=== PATIENT | female | born 1935 | race Caucasian/White ===

== ENCOUNTER 2019-03-07 15:20 | Emergency (ER) | payer MEDICARE, MEDICAID ==
[~2019-03-07] VITALS: Ht 149.9 cm; Wt 69.9 kg
[2019-03-07] MEDS ORDERED: NACL 0.9% 1,000 ML IV ONE (15:25)
[2019-03-07 15:27] VITALS: BP_SYST 179
[2019-03-07] MEDS ORDERED: NS 1000 ML IV.SOLN IV ONE (15:30)
[2019-03-07 16:22] LABS: BASOPHILS # (AUTO) 0.1 K/uL (0.0-0.2); BASOPHILS % (AUTO) 1.1 % (0.0-2.0); EOSINOPHILS # (AUTO) 0.1 K/uL (0.0-0.4); EOSINOPHILS % (AUTO) 2.2 % (0.0-4.0); HEMATOCRIT 40.6 % (36-48); HEMOGLOBIN 13.5 g/dL (12.0-16.0); LYMPHOCYTES # (AUTO) 1.4 K/uL (1.0-5.5); MEAN CORPUSCULAR HEMOGLOBIN 29 pg (27-31); MEAN CORPUSCULAR HGB CONC 33 % (32-36); MEAN CORPUSCULAR VOLUME 87 fL (79.0-98.0); MONOCYTES # (AUTO) 0.5 K/uL (0.0-1.0); MONOCYTES % (AUTO) 10.6 % (1.7-9.3); NEUTROPHILS # (AUTO) 2.9 K/uL (1.8-7.7); NEUTROPHILS % (AUTO) 58.1 % (40.0-70.0); PLATELET COUNT (AUTO) 140 K/uL (130-430); RED BLOOD CELL COUNT(AUTO) 4.64 MIL/uL (4.2-6.2); RED CELL DISTRIBUTION WIDTH 13.1 % (9.0-15.0)
[2019-03-07 16:38] LABS: ANION GAP 5 (5-15); CHLORIDE 101 mmol/L (98-107); CREATININE 0.98 mg/dL (0.55-1.30); GLUCOSE 336 mg/dL (70-99); POTASSIUM 4.4 mmol/L (3.5-5.1); SODIUM SERUM 137 mmol/L (136-145); UREA NITROGEN, BLOOD 14 mg/dL (8-21)
[2019-03-07 16:41] LABS: PROTHROMBIN TIME 10.2 SECS (9.5-12.5)
[2019-03-07 16:44] LABS: ALANINE AMINOTRANSFERASE 30 U/L (12-78); ALBUMIN 4.2 g/dL (3.4-4.8); AMYLASE 39 U/L (0-100); ASPARTATE AMINOTRANSFERASE 21 U/L (10-37); LIPASE 105 U/L (73-393); TOTAL BILIRUBIN 1.2 mg/dL (0.0-1.0)
[2019-03-07 16:59] LABS: ALCOHOL, BLOOD < 3 mg/dL (<10)
[2019-03-07 17:04] LABS: ACETAMINOPHEN < 1 ug/mL (1-30); CALCIUM 8.9 mg/dL (8.4-11.0)
[2019-03-07] MEDS ORDERED: NACL 0.9% 2,000 ML IV ONE (17:15)
[2019-03-07] MEDS ORDERED: INSULIN REGULAR, HUMAN 10 UNITS/0.1 ML INJ IVP ONE (17:15)
[2019-03-07 17:19] VITALS: BP_SYST 148
[2019-03-07 17:28] LABS: CKMB RELATIVE INDEX 1.3 (0.0-2.9); CREATINE KINASE MB 3.3 ng/mL (0-3.6)
== END 2019-03-07 17:24 | disposition home or self-care (01) ==
LOC: SED 15:20
DX: M48.56XA Collapsed vertebra, not elsewhere classified, lumbar region, initial encounter for fracture (principal); M47.816 Spondylosis without myelopathy or radiculopathy, lumbar region; M41.56 Other secondary scoliosis, lumbar region; R42 Dizziness and giddiness; E11.65 Type 2 diabetes mellitus with hyperglycemia; I10 Essential (primary) hypertension
CPT/HCPCS: 36415; 70450; 71045; 72110; 80053; 82150; 82550; 82553; 82962; 83605; 83690; 83880; 84484; 85025; 85379; 85610; 85730; 87040; 93005; 96360; 99284; G0480; G0482; J7030

== ENCOUNTER 2019-03-26 16:38 | Inpatient (IN) | payer MEDICAID, MEDICARE ==
[~2019-03-26] VITALS: Ht 152.4 cm; Wt 69.9 kg
[2019-03-26 16:38] VITALS: BP_SYST 183
[~2019-03-26 16:38] MED LIST: BUPIVACAINE /DEX PF 0.75% SPINAL 2 ML AMP INJ ONE; CEFAZOLIN 2 GM IVPB PREMIX 50 ML IV ONE; LR 1,000 ML IV.SOLN IV ONE; MIDAZOLAM HCL 5 MG/5 ML VIAL IVP ONE; MORPHINE SULFATE 10MG/10ML PF AMP EP ONE; PROPOFOL 200MG/ 20ML VIAL (DIPRIVAN) IV ONE
--- NOTE | 2019-03-26 16:38 | NUR ---
BROUGHT BACK TO HALLWAY BED AND TRIAGED. REPORT GIVEN TO KELSI
--- NOTE | 2019-03-26 17:00 | NUR ---
Patient to ER bed 6 to gown for evaluation. Side rails up.
--- NOTE | 2019-03-26 17:05 | NUR ---
Patient presented to ER C/O mechanical fall. Patient BIB BLS to ER, afebrile, skin pink and warm, pedal pulses present, denies N/V/D, pain 10/10. Patient states she tripped over rug at home, daughter of patient found pt on floor.
--- NOTE | 2019-03-26 17:32 | NUR ---
PT TO ER BED [address]
--- NOTE | 2019-03-26 17:35 | NUR ---
ER Dr. VIZCARRA at bedside examining patient.
--- NOTE | 2019-03-26 17:40 | NUR ---
PT FAMILY WILL BRING IN HOME MEDS LIST.
[2019-03-26 18:16] LABS: BASOPHILS # (AUTO) 0.1 K/uL (0.0-0.2); BASOPHILS % (AUTO) 0.8 % (0.0-2.0); EOSINOPHILS # (AUTO) 0.1 K/uL (0.0-0.4); HEMATOCRIT 38.5 % (36-48); LYMPHOCYTES # (AUTO) 1.1 K/uL (1.0-5.5); MEAN CORPUSCULAR HEMOGLOBIN 29 pg (27-31); MEAN CORPUSCULAR HGB CONC 34 % (32-36); MEAN CORPUSCULAR VOLUME 87 fL (79.0-98.0); MONOCYTES # (AUTO) 0.7 K/uL (0.0-1.0); MONOCYTES % (AUTO) 8.5 % (1.7-9.3); NEUTROPHILS # (AUTO) 6.1 K/uL (1.8-7.7); NEUTROPHILS % (AUTO) 75.7 % (40.0-70.0); PLATELET COUNT (AUTO) 133 K/uL (130-430); RED CELL DISTRIBUTION WIDTH 13.1 % (9.0-15.0); WHITE BLOOD COUNT (AUTO) 8.1 K/uL (4.8-10.8)
[2019-03-26 18:31] LABS: ANION GAP 8 (5-15); CALCIUM 9.1 mg/dL (8.4-11.0); CHLORIDE 101 mmol/L (98-107); CREATININE 0.72 mg/dL (0.55-1.30); GLUCOSE 276 mg/dL (70-99); POTASSIUM 4.3 mmol/L (3.5-5.1); SODIUM SERUM 139 mmol/L (136-145); UREA NITROGEN, BLOOD 17 mg/dL (8-21)
[2019-03-26 18:34] LABS: PROTHROMBIN TIME 9.9 SECS (9.5-12.5)
[2019-03-26 18:37] LABS: ALANINE AMINOTRANSFERASE 27 U/L (12-78); ASPARTATE AMINOTRANSFERASE 18 U/L (10-37); TOTAL BILIRUBIN 0.9 mg/dL (0.0-1.0)
[2019-03-26] MEDS ORDERED: KETOROLAC TROMETHAMINE 30 MG VIAL IVP ONE (18:45)
--- NOTE | 2019-03-26 19:03 | NUR ---
Patient will be admitted to care of [facility]. Admitted to TELE unit. Will go to room 122A. Belongings list completed. Complete and up to date summary report printed. SBAR report to be given at bedside with opportunity for questions. Transfer to TELE via ACLS protocol. Licensed nurse present. IV present no signs or symptoms of infiltration.
--- NOTE | 2019-03-26 19:10 | NUR ---
ADMISSION NOTE Received patient from ER via gurcelso, received report from RN. Patient admitted with diagnosis of right hip and right humerus fracture. Patient oriented to hospital routine, call light, toileting and safety-patient verbalized understanding.
--- NOTE | 2019-03-26 19:30 | NUR ---
Opening notes Patient resting in bed. Patient complaints of pain, but not too bad. States she does not want any narcotics. IV patent and intact, no signs of infiltration noted. Oriented patient to room and call light. Call light with the patient. Safety precautions in place.
[2019-03-26] MEDS ORDERED: VALS160T29 PO (19:49)
[2019-03-26] MEDS ORDERED: LIP40 PO (19:49)
[2019-03-26] MEDS ORDERED: GLIM4TAB PO (19:49)
[2019-03-26] MEDS ORDERED: MORPHINE 2 MG/ML INJ. SYRINGE IVP PRN (20:00)
[2019-03-26 20:17] VITALS: BP_SYST 160
[2019-03-26] MEDS: ACETAMINOPHEN 325 MG TABLET PO PRN (20:55)
--- NOTE | 2019-03-26 21:00 | NUR ---
Loo insertion Patient repositioned and wanting to use bed pain. Patient experienced severe pain. Informed patient and family that patient may need to have a loo catheter inserted. Patient and family agree. Spoke to Dr. Qureshi about current situation and ordered for loo catheter to be inserted and strict I&Os. Loo catheter inserted with 500 ml of clear yellow urine return. Urine collected for UA. No other needs at this time. Call light with the patient. Safety precautions in place.
--- NOTE | 2019-03-26 21:16 | NUR ---
CONSULTATION PAGED/CALLED Reason for Consultation: [facility] CARDIOLOGY CLEARANCE Person Who was Notified: ELSA Consulting Physician: Maintenance Superintendent Specialty: CARDIO Ordering Physician:
[2019-03-26] MEDS: INSULIN LISPRO SLIDING SCALE 100 UNITS/ML VIAL (humaLOG) SUBCUT PRN (22:14)
[2019-03-26 22:21] LABS: BILIRUBIN,URINE NEGATIVE (NEGATIVE); BLOOD, URINE NEGATIVE (NEGATIVE); CLARITY/URINE CLEAR (CLEAR); COLOR,URINE YELLOW (YELLOW); GLUCOSE,URINE 3+ (NEGATIVE); KETONES,URINE NEGATIVE (NEGATIVE); LEUKOCYTE ESTERASE ,URINE NEGATIVE (NEGATIVE); NITRITE, URINE NEGATIVE (NEGATIVE); PROTEIN URINE NEGATIVE (NEGATIVE); UROBILINOGEN,URINE 0.2 (0.2-1.0)
[2019-03-26] MEDS: ZOLPIDEM TARTRATE 5 MG TABLET PO PRN (23:45)
--- NOTE | 2019-03-26 23:45 | NUR ---
Ambien Patient requesting sleeping pill. PRN ambien given. Educated the action and side effects of medications. Patient and family verbalized understanding. No other needs. Call light with the patient. Safety precautions in place. Family at bedside.
[2019-03-27 00:30] VITALS: BP_SYST 118
--- NOTE | 2019-03-27 02:30 | NUR ---
Sleeping No signs of distress noted. Breathing even and unlabored. No needs. Call light with the patient. Safety precautions in place. Family at bedside.
--- NOTE | 2019-03-27 04:30 | NUR ---
Sleeping No signs of distress noted. Breathing even and unlabored. No signs of pain noted. Call light with the patient. Safety precautions in place.
[2019-03-27] MEDS: INSULIN LISPRO SLIDING SCALE 100 UNITS/ML VIAL (humaLOG) SUBCUT PRN ×4 (06:18→20:14)
[2019-03-27] MEDS: ACETAMINOPHEN 325 MG TABLET PO PRN ×3 (06:19→19:21)
[2019-03-27 06:25] LABS: ALANINE AMINOTRANSFERASE 24 U/L (12-78); ALBUMIN 3.5 g/dL (3.4-4.8); ANION GAP 8 (5-15); ASPARTATE AMINOTRANSFERASE 16 U/L (10-37); CALCIUM 8.3 mg/dL (8.4-11.0); CHLORIDE 101 mmol/L (98-107); CREATININE 0.72 mg/dL (0.55-1.30); GLUCOSE 319 mg/dL (70-99); POTASSIUM 4.2 mmol/L (3.5-5.1); SODIUM SERUM 136 mmol/L (136-145); THYROID STIMULATING HORMONE 0.48 uIu/mL (0.36-3.74); TOTAL BILIRUBIN 1.1 mg/dL (0.0-1.0); UREA NITROGEN, BLOOD 20 mg/dL (8-21)
[2019-03-27 06:40] LABS: BASOPHILS % (AUTO) 0.4 % (0.0-2.0); EOSINOPHILS % (AUTO) 0.3 % (0.0-4.0); HEMATOCRIT 34.6 % (36-48); HEMOGLOBIN 11.7 g/dL (12.0-16.0); LYMPHOCYTES # (AUTO) 0.9 K/uL (1.0-5.5); LYMPHOCYTES % (AUTO) 9.9 % (20.5-51.5); MEAN CORPUSCULAR HEMOGLOBIN 30 pg (27-31); MEAN CORPUSCULAR HGB CONC 34 % (32-36); MEAN CORPUSCULAR VOLUME 88 fL (79.0-98.0); MONOCYTES # (AUTO) 0.9 K/uL (0.0-1.0); NEUTROPHILS # (AUTO) 7.7 K/uL (1.8-7.7); NEUTROPHILS % (AUTO) 80.4 % (40.0-70.0); PLATELET COUNT (AUTO) 138 K/uL (130-430); RED BLOOD CELL COUNT(AUTO) 3.95 MIL/uL (4.2-6.2); RED CELL DISTRIBUTION WIDTH 13.3 % (9.0-15.0); WHITE BLOOD COUNT (AUTO) 9.6 K/uL (4.8-10.8)
--- NOTE | 2019-03-27 06:41 | NUR ---
Closing notes Patient resting in bed. No signs of distress noted. Breathing even and unlabored. PRN Tylenol given. Accucheck 299, insulin given per sliding scale. Patient tolerated well. IV patent and intact, no signs of infiltration noted. Valentin catheter in place draining yellow urine. all needs met throughout the shift. Call light with the patient. Safety precautions in place. Will endorse care to day shift RN.
--- NOTE | 2019-03-27 07:50 | NUR ---
OPENING NOTE RECEIVED PATIENT FROM BREAKFAST HOSTESS. PATIENT AWAKE IN BED. NO C/O PAIN. ROOM AIR. NO ACUTE DISTRESS. NO SOB. RESPIRATION EVEN AND UNLABORED. SKIN WARM AND DRY TO TOUCH. IV INTACT AND PATENT. PATIENT ABLE TO WIGGLE TOES TO BLE. DAUGHTER AND GRANDSON AT BEDSIDE. DISCUSSED PLAN OF CARE; PT AND FAMILY VERBALIZED UNDERSTANDING. ALL NEEDS MET. BED IN LOW AND LOCKED POSITION. SIDERAIL UPX3. CALL LIGHT IN REACH. CONT TO MONITOR
[2019-03-27 08:11] VITALS: BP_SYST 118
[2019-03-27] MEDS: LOSARTAN POTASSIUM 50 MG TABLET (COZAAR) PO SCH (08:38)
[2019-03-27] MEDS ORDERED: INSULIN GLARGINE 100 UNITS/ML 10 ML VIAL SUBCUT ONE ×2 (08:45→21:00)
--- NOTE | 2019-03-27 08:45 | NUR ---
MEDS ALL DUE MEDS ADMINISTERED ORDERED, TARUN WELL. TEACHING DONE ON MEDICATIONS. DAUGHTER AND GRANDSON AT BEDSIDE. ALL NEEDS MET. CONT TO MONITOR. CALL LIGHT IN REACH
--- NOTE | 2019-03-27 08:50 | NUR ---
CONSULTATION PAGED REASON FOR CONSULTATION:FRACTURE HIP AND SHOULDER WAS CONSULT CALLED?Y PERSON WHO WAS NOTIFIED:LANI CONSULTING PHYSICIAN:GENNARO OROZCO BOAT PULLER SPECIALTY:ORTHO BOAT PULLER PHONE NUMBER:[phone] REQUESTING PHYSICIAN:BUDDY TAVERA
[2019-03-27] MEDS ORDERED: GLIMEPIRIDE 2 MG TABLET PO SCH (09:00)
[2019-03-27] MEDS ORDERED: FAMOTIDINE 20 MG TABLET PO ONE (09:00)
--- NOTE | 2019-03-27 09:20 | NUR ---
SEEN AND EXAMINED BY AT BEDSIDE
--- NOTE | 2019-03-27 09:35 | NUR ---
2D ECHO DONE AT BEDSIDE GRANDSON AT BEDSIDE
--- NOTE | 2019-03-27 09:41 | NUR ---
Nutrition Update Florentin Scale 18 noted. Pt admitted for R hip fracture, R humerus fracture. Diet: [facility] BMI: 30.1 kg/m2 RD to follow per nutrition care standards.
--- NOTE | 2019-03-27 11:30 | NUR ---
NOTE ASSISTED PATIENT OFF BEDPAN; PATIENT JUST HAD GAS, NO BM. REPOSITIONED FOR COMFORT. CONT TO MONITOR
--- NOTE | 2019-03-27 12:10 | NUR ---
BLOOD GLUCOSE 312 mg/dL WITH INSULIN COVERAGE ADMINISTERED ORDERED, TARUN WELL. TEACHING DONE ON DM. FAMILY AT BEDSIDE. ALL NEEDS MET. CONT TO MONITOR
[2019-03-27 12:30] VITALS: BP_SYST 112
--- NOTE | 2019-03-27 14:00 | NUR ---
NOTE ASSISTED PATIENT OFF BEDPAN; PATIENT JUST HAD GAS, NO BM. REPOSITIONED FOR COMFORT. CONT TO MONITOR Addendum: 03/27/19 at 1544 by Marine Valenzuela RN PRUNE JUICE OFFERED; PATIENT DOES NOT WANT MEDICATION FOR CONSTIPATION
[2019-03-27] MEDS ORDERED: HYDROcodone/ACETAMIN 5-325 MG TAB (NORCO/ VICODIN) PO PRN (15:00)
--- NOTE | 2019-03-27 15:00 | NUR ---
SEEN AND EXAMINED BY AT BEDSIDE; AWAITING FOR ORTHO CONSULT TO SEE PATIENT
[2019-03-27 16:54] VITALS: BP_SYST 145
--- NOTE | 2019-03-27 17:29 | NUR ---
CONSULTATION FOLLOW UP REASON FOR CONSULTATION:FRACTURE HIP AND FRACTURE WAS CONSULT CALLED?Y PERSON WHO WAS NOTIFIED:ELSA CONSULTING PHYSICIAN:GENNARO OROZCO (JESSIE MONTERROSO DISPATCHER AUTOM[employer]BI[employer] RENTAL) HOSPICE NURSE PRACTITIONER SPECIALTY:ORTHO SURGEON HOSPICE NURSE PRACTITIONER PHONE NUMBER:[phone] REQUESTING PHYSICIAN:BUDDY SMITH
--- NOTE | 2019-03-27 17:30 | NUR ---
BLOOD GLUCOSE 168 mg/dL WITH INSULIN COVERAGE ORDERED, TARUN WELL. TEACHING DONE. FAMILY AT BEDSIDE. CONT TO MONITOR. CALL LIGHT IN REACH
--- NOTE | 2019-03-27 18:10 | NUR ---
NOTE ASSISTED PATIENT WITH INCONTINENCE CARE. PATIENT HAD LRG BMX1. ALL NEEDS MET. CONT TO MONITOR. CALL LIGHT IN REACH
--- NOTE | 2019-03-27 18:45 | NUR ---
CLOSING NOTE PATIENT IS STABLE. AWAKE IN BED TALKING TO FAMILY AT BEDSIDE. NO ACUTE DISTRESS. NO SOB. SKIN WARM AND DRY TO TOUCH. PATIENT ABLE TO MOVE AND FEEL SENSATION TO ALL TOES. AWAITING FOR ORTHO CONSULT; PATIENT AND FAMILY AWARE. ALL NEEDS MET. CALL LIGHT IN REACH. CONT TO MONITOR. WILL ENDORSE TO ONCOMING SHIFT.
--- NOTE | 2019-03-27 19:05 | NUR ---
OPENING NOTES Bedside report received from dayshift nurse. Patient received lying in bed, complains of pain, requesting for her Tylenol, PRN medication to be administered. Breathing is even and unlabored. IV site patent, no signs of infiltration or infection noted. Valentin attached, secured, and draining by gravity. Skin warm and dry to touch, no s/s of hypoglycemia noted. Call light with patient. Bed alarm on. Patient's family present at bedside. Will continue to monitor.
[2019-03-27 20:00] VITALS: BP_SYST 147
--- NOTE | 2019-03-27 20:37 | NUR ---
Paged Dr. Qureshi s/w Terri
--- NOTE | 2019-03-27 21:00 | NUR ---
SPOKE WITH DR JANET Qureshi informed about patient's recent accuchecks, ordered additional 8 units of Lantus. Will carry out order. Patient in bed no s/s of acute distress. Breathing even and unlabored. Will continue to monitor.
[2019-03-27] MEDS: ZOLPIDEM TARTRATE 5 MG TABLET PO PRN (22:00)
--- NOTE | 2019-03-27 23:00 | NUR ---
ROUNDS Patient in bed sleeping. No s/s of acute distress noted. Breathing even and unlabored. Valentin attached, secured, and draining by gravity. Will continue to monitor.
[2019-03-28] VITALS: BP_SYST 142
[2019-03-28] MEDS: ACETAMINOPHEN 325 MG TABLET PO PRN ×4 (01:18→23:07)
--- NOTE | 2019-03-28 01:20 | NUR ---
PAIN Patient complained of pain, requested for Tylenol, PRN medication administered. Will monitor and reassess.
--- NOTE | 2019-03-28 03:00 | NUR ---
ROUNDS Patient asleep. No s/s of acute distress noted. Breathing even and unlabored. Call light with patient. Will continue to monitor.
--- NOTE | 2019-03-28 05:00 | NUR ---
ROUNDS Patient in bed sleeping. No signs of discomfort noted. Chest rise and fall even bilaterally. Call light with patient. Bed alarm on. Will continue to monitor.
[2019-03-28] MEDS: INSULIN LISPRO SLIDING SCALE 100 UNITS/ML VIAL (humaLOG) SUBCUT PRN ×3 (06:04→17:38)
--- NOTE | 2019-03-28 06:21 | NUR ---
CLOSING NOTES Patient sleeping at this time. No s/s of acute distress noted. Breathing even and unlabored. IV site is patent, no signs of infiltration or infection noted. Neurovascular check within normal limits. Skin warm and dry to touch, no s/s of hypoglycemia noted. Valentin attached, secured, and draining by gravity. All needs met throughout shift. Fall and safety precautions maintained throughout shift. Will continue to monitor until patient care is endorsed to oncoming dayshift nurse.
--- NOTE | 2019-03-28 08:00 | NUR ---
ASSUMPTION OF CARE: RECEIVED PT A/A/OX4, DX:IMPAIRED PHYSICAL MOBILITY, R/T RIGHT HIP FX, VSS, NO S/S OF DISTRESS, LYING IN POSITION OF COMFORT, BREATH SOUNDS ARE CLEAR, BREATHING UNLABORED, NO C/O PAIN OR DISCOMFORT, POSITIONED IN BED WITH RIGHT LEG SLIGHTLY ELEVATED ON PILLOW, IV SITE INTACT, PATENT, NO REDNESS OR SWELLING, FAMILY AT BEDSIDE, ORIENTED TO UNIT AND CALL LIGHT, WILL CONT' TO MONITOR AND ASSESS.
--- NOTE | 2019-03-28 09:00 | NUR ---
OUTSIDE EVENT SALES SPECIALIST: MORNING MEDS GIVEN, PER ORDERED BY Edy, TOLERATED WELL, WILL CONT' WITH POC.
--- NOTE | 2019-03-28 09:01 | NUR ---
F/U ORTHO CONSULT SHOULDER AND HIP FRACTURE DR LU [phone] S/W JAMEEL EXCHANGE DR LU WAS INFORMED ON 03/27 @ [address] LU AGAIN
[2019-03-28] MEDS ORDERED: INSULIN GLARGINE 100 UNITS/ML 10 ML VIAL SUBCUT ONE (09:45)
[2019-03-28] MEDS ORDERED: METOPROLOL SUCCINATE 25 MG TAB.SR.24H (TOPROL XL) PO ONE (10:00)
[2019-03-28] MEDS: LOSARTAN POTASSIUM 50 MG TABLET (COZAAR) PO SCH (10:21)
--- NOTE | 2019-03-28 11:30 | NUR ---
GLUCOSE MONITORING: BLOOD SUGAR ZEPIA=558, 4 UNITS HUMALOG INSULIN GIVEN SQ, TOLERATED WELL, WILL CONT' TO MONITOR AND ASSESS.
--- NOTE | 2019-03-28 12:00 | NUR ---
VISIT: AT BEDSIDE FOR ASSESSMENT OF PT, SPOKE TO PT AND FAMILY ABOUT PLANS FOR PROCEDURE, PT VERBALIZES UNDERSTANDING, AND AGREES, NEW ORDERS GIVEN, WILL CONT' WITH POC.
[2019-03-28 12:49] VITALS: BP_SYST 137
--- NOTE | 2019-03-28 14:15 | NUR ---
VISIT: AT BEDSIDE FOR ASSESSMENT OF PT, SPOKE TO PT AND FAMILY REGARDING POC, VERBALIZES UNDERSTANDING, WILL CONT' TO MONITOR AND ASSESS.
--- NOTE | 2019-03-28 17:00 | NUR ---
GLUCOSE MONITORING: BLOOD SUGAR TECWW=223, 4 UNITS HUMALOG INSULIN GIVEN SQ, TOLERATED WELL, WILL CONT' TO MONITOR AND ASSESS.
[2019-03-28 17:30] VITALS: BP_SYST 128
--- NOTE | 2019-03-28 19:40 | NUR ---
ROUNDS PATIENT RESTING COMFORTABLY IN BED, VITALS STABLE, DENIES ANY ZEYAD AND DISCOMFORT AT THIS TIME. ASSESSMENT HERRERA AND DOCUEMNTED. SEE FLOWSHEET. NEEDS ATTENDED TO. SAFETY MEASURES IN PLACED. CALL LIGHT PLACED WITHIN REACH.
[2019-03-28] MEDS: INSULIN GLARGINE 100 UNITS/ML 10 ML VIAL SUBCUT SCH (21:00)
--- NOTE | 2019-03-28 21:13 | NUR ---
MEDICATION DUE MEDICATIOS GIVEN SCHEDULED, TOLERATED WELL. WILL CONTINUE TO MONITOR.
[2019-03-28] MEDS: ZOLPIDEM TARTRATE 5 MG TABLET PO PRN (23:07)
--- NOTE | 2019-03-29 00:14 | NUR ---
PATIENT RESTING: Patient resting quietly. No acute distress noted. Vital signs within normal range.
[2019-03-29 00:32] VITALS: BP_SYST 120
--- NOTE | 2019-03-29 02:16 | NUR ---
ROUNDS PATIENT ASLEEP, RESPIRATIONS EVEN AND UNLABORED, WILL CONTINUE TO MONITOR.
--- NOTE | 2019-03-29 04:12 | NUR ---
PATIENT RESTING: Patient resting quietly. No acute distress noted. Vital signs within normal range.
[2019-03-29 05:11] LABS: ANION GAP 9 (5-15); CHLORIDE 102 mmol/L (98-107); CREATININE 0.67 mg/dL (0.55-1.30); GLUCOSE 204 mg/dL (70-99); POTASSIUM 3.7 mmol/L (3.5-5.1); SODIUM SERUM 137 mmol/L (136-145); UREA NITROGEN, BLOOD 20 mg/dL (8-21)
--- NOTE | 2019-03-29 07:18 | NUR ---
Opening Note received bedside SBAR report from export agent RN, patient resting in bed, respirations even and unlabored, no acute distress noted, patients family at bedside, educated patient on use of call light and asked to call for assistance, patient verbalized understanding, call light in reach, bed in low and locked position, bed alarm on.
[2019-03-29] MEDS: LOSARTAN POTASSIUM 50 MG TABLET (COZAAR) PO SCH (07:54)
[2019-03-29] MEDS: METOPROLOL SUCCINATE 25 MG TAB.SR.24H (TOPROL XL) PO SCH (07:54)
[2019-03-29 08:00] VITALS: BP_SYST 119
[2019-03-29] MEDS ORDERED: fentaNYL CITRATE/PF 100 MCG/2 ML AMP IVP PRN ×2 (09:45)
[2019-03-29] MEDS ORDERED: NALOXONE HCL 0.4 MG/ML AMP (NARCAN) IVP PRN ×2 (09:45)
[2019-03-29] MEDS ORDERED: KETOROLAC TROMETHAMINE 60 MG/2 ML VIAL IM PRN (09:45)
[2019-03-29] MEDS ORDERED: NALBUPHINE HCL 10 MG/ML AMP IVP PRN (09:45)
[2019-03-29] MEDS ORDERED: DIPHENHYDRAMINE INJ 50 MG/ML VIAL IVP PRN ×2 (09:45→12:31)
[2019-03-29] MEDS ORDERED: MORPHINE SULFATE 10MG/10ML PF AMP SP SCH (09:45)
[2019-03-29] MEDS ORDERED: ONDANSETRON HCL 4 MG/2 ML VIAL IVP PRN (09:45)
--- NOTE | 2019-03-29 10:09 | NUR ---
to OR patient taken to OR via gurney by MARKETING ANALYTICS SPECIALIST, no acute distress noted, respirations even and unlabored on room air, patients family taken to OR waiting room.
[2019-03-29] MEDS ORDERED: POLYMYXIN 500,000/BACIT.10,000 UNITS in NS IRR 1 L IR ONE (12:19)
[2019-03-29] MEDS ORDERED: MORPHINE 2 MG/ML INJ. SYRINGE IVP PRN (12:31)
[2019-03-29 12:37] VITALS: BP_SYST 119
[2019-03-29] MEDS ORDERED: HYDROcodone/ACETAMIN 5-325 MG TAB (NORCO/ VICODIN) PO PRN ×2 (13:15)
[2019-03-29 13:50] VITALS: BP_SYST 119
--- NOTE | 2019-03-29 13:50 | NUR ---
back from OR patient brought back to room via gurney from OR, received bedside report from ORACLE ASCP CONSULTANT, patient on tele monitor, no acute distress noted, respirations even and unlabored on room air, patient denies any pain at this time, dressing to right hip clean, dry, and intact, no bleeding noted, patient is able to move and wiggle toes bilaterally, patient denies any numbness or tingling in affected extremity, pedal pulses palpable bilaterally, SCDs in place, patient eating lunch, patient denies any nausea or difficulty swallowing, patient family at bedside, educated patient and patients family on use of call light and asked to call for assistance, patient and patients family verbalized understanding, call light in reach, bed in low and locked position, bed alarm on.
[2019-03-29] MEDS: INSULIN LISPRO SLIDING SCALE 100 UNITS/ML VIAL (humaLOG) SUBCUT PRN ×2 (13:57→17:30)
[2019-03-29] MEDS: CEFAZOLIN 1 GM IVPB PREMIX 50 ML IV SCH ×2 (14:47→23:00)
--- NOTE | 2019-03-29 15:05 | NUR ---
RN Rounds patient resting in bed, patient reports pain is controlled at this time, respirations even and unlabored on room air, no acute distress noted, patients family at bedside.
[2019-03-29 16:35] VITALS: BP_SYST 114
--- NOTE | 2019-03-29 17:45 | NUR ---
RN Rounds patient eating dinner, tolerating well, patient denies any nausea, patients family at bedside.
--- NOTE | 2019-03-29 19:23 | NUR ---
Closing Note bedside SBAR report given to receiving RN, patient resting in bed, respirations even and unlabored on room air, patient reports pain is controlled, surgical dressing clean, dry, and intact, no acute distress noted, patients family at bedside, educated patient on use of call light and asked to call for assistance, patient verbalized understanding, call light in reach, bed in low and locked position, bed alarm on, care endorsed to radiotelephone operator RN.
--- NOTE | 2019-03-29 19:40 | NUR ---
ROUNDS PATIENT RESTING COMFORTABLY IN BED, VITALS STABLE, DENIES ANY PAIN AND DISCOMFORT AT THIS TIME. PATIENT S/P RIGHT HIP SURGERY, DRESSING TO THE RIGHT HIP CLEAN, DRY AND INTACT. NEEDS ATTENDED TO. SAFETY AND FALL PRECAUTION MEASURES IN PLACED. BED ALARM ON. CALL LIGHT PLACED WITHIN REACH.
[2019-03-29 20:00] VITALS: BP_SYST 128
[2019-03-29] MEDS: INSULIN GLARGINE 100 UNITS/ML 10 ML VIAL SUBCUT SCH (20:52)
--- NOTE | 2019-03-29 21:16 | NUR ---
MEDICATION DUE MEDICATIONS GIVEN SCHEDULED, TOLERATED WELL. WILL CONTINUE TO MONITOR.
[2019-03-30] VITALS: BP_SYST 125
--- NOTE | 2019-03-30 00:12 | NUR ---
ROUNDS PATIENT ASLEEP, VITALS STABLE, NO SOB NOR PAIN AND DISCOMFORT NOTED. WILL CONTINUE TO MONITOR.
[2019-03-30] MEDS: ACETAMINOPHEN 325 MG TABLET PO PRN ×4 (01:22→21:14)
--- NOTE | 2019-03-30 02:14 | NUR ---
ROUNDS PATIENT ASLEEP, RESPIRATIONS EVEN AND UNLABORED, NO SIGNS OF ANY PAIN AND DISCOMFORT NOTED. WILL CONTINUE TO MONITOR.
--- NOTE | 2019-03-30 04:12 | NUR ---
PATIENT RESTING: Patient resting quietly. No acute distress noted. Vital signs within normal range.
[2019-03-30] MEDS: INSULIN LISPRO SLIDING SCALE 100 UNITS/ML VIAL (humaLOG) SUBCUT PRN ×4 (06:04→20:59)
--- NOTE | 2019-03-30 06:50 | NUR ---
CLOSING NOTES PATIENT AWAKE, VITALS STABLE, DENIES ANY PAIN AT THIS TIME. ALL NEEDS ATTENDED TO. SAFETY MEASURES MAINTAINED. CALL LIGHT PLACED WITHIN REACH.
[2019-03-30 07:09] LABS: BASOPHILS # (AUTO) 0.1 K/uL (0.0-0.2); BASOPHILS % (AUTO) 0.9 % (0.0-2.0); EOSINOPHILS # (AUTO) 0.2 K/uL (0.0-0.4); HEMATOCRIT 26.5 % (36-48); HEMOGLOBIN 8.9 g/dL (12.0-16.0); LYMPHOCYTES # (AUTO) 1.5 K/uL (1.0-5.5); LYMPHOCYTES % (AUTO) 18.3 % (20.5-51.5); MEAN CORPUSCULAR HEMOGLOBIN 30 pg (27-31); MEAN CORPUSCULAR HGB CONC 34 % (32-36); MEAN CORPUSCULAR VOLUME 88 fL (79.0-98.0); MONOCYTES % (AUTO) 12.8 % (1.7-9.3); NEUTROPHILS # (AUTO) 5.3 K/uL (1.8-7.7); PLATELET COUNT (AUTO) 109 K/uL (130-430); RED BLOOD CELL COUNT(AUTO) 3.02 MIL/uL (4.2-6.2); RED CELL DISTRIBUTION WIDTH 13.3 % (9.0-15.0); WHITE BLOOD COUNT (AUTO) 8.1 K/uL (4.8-10.8)
--- NOTE | 2019-03-30 07:29 | NUR ---
Opening Note bedside SBAR report received from route salesperson RN, patient resting in bed, respirations even and unlabored on room air, no acute distress noted, patient denies any pain, patients family at bedside, educated patient on use of call light and asked to call for assistance, patient verbalized understanding, call light in reach, bed in low and locked position, bed alarm on.
[2019-03-30 07:54] LABS: ANION GAP 8 (5-15); CHLORIDE 102 mmol/L (98-107); CREATININE 0.71 mg/dL (0.55-1.30); GLUCOSE 175 mg/dL (70-99); POTASSIUM 4.2 mmol/L (3.5-5.1); SODIUM SERUM 136 mmol/L (136-145); UREA NITROGEN, BLOOD 27 mg/dL (8-21)
[2019-03-30 08:00] VITALS: BP_SYST 110
[2019-03-30] MEDS: LOSARTAN POTASSIUM 50 MG TABLET (COZAAR) PO SCH (08:22)
[2019-03-30] MEDS: METOPROLOL SUCCINATE 25 MG TAB.SR.24H (TOPROL XL) PO SCH (08:23)
[2019-03-30] MEDS: ENOXAPARIN SODIUM 40 MG/0.4 ML SYRINGE SUBCUT SCH (08:25)
--- NOTE | 2019-03-30 08:41 | NUR ---
Spoke with Physician moderate amount of bloody drainage noted at surgical site to right hip, reinforced surgical dressing with ABD pad, patient tolerated well, no acute distress noted, Spoke with Dr. Loyd (media relations manager for Dr. Cooper), informed him of bloody drainage noted at surgical site and that dressing was reinforced, no new orders, Dr. Loyd states that Dr. Cooper will be in today and will see the patient.
--- NOTE | 2019-03-30 09:25 | NUR ---
Cool Packs patient requesting cool packs for incision site, provided patient with cool packs, educated patient and patients family on placement of pillow under heel, not under the knee, patient and patients family verbalized understanding, pillow placed under heel, patient reports pain is controlled at this time.
--- NOTE | 2019-03-30 11:55 | NUR ---
RN Rounds patient eating lunch, tolerating well, patient reports pain is controlled, patient denies any nausea, patients family at bedside.
--- NOTE | 2019-03-30 12:41 | NUR ---
Dietitian Recommendations *Recommend [facility] diet w/ Humberto BID. Modular will provide additional 192 kcal and 5 gm protein daily. Please see Nutritional Assessment for details. MARY, RD
[2019-03-30 12:53] VITALS: BP_SYST 116
[2019-03-30] MEDS: HYDROcodone/ACETAMIN 5-325 MG TAB (NORCO/ VICODIN) PO PRN (13:43)
--- NOTE | 2019-03-30 14:15 | NUR ---
Physical Therapy physical therapy at bedside working with patient.
--- NOTE | 2019-03-30 15:29 | NUR ---
SS NOTES: DINNER COOK was referred by CM to see patient for DCPA and SSA. DINNER COOK met with patient at bedside who was alert and oriented x4. Pt is Persian only, dtr was there to translate. Pt is an 83 y/o female, who came in via ED after a fall at home on 03/26/2019. Prior to admission, pt had a fall on 03/06 and was in the ER then discharged the same day. This time around, she tripped and fell and is admitted for hip fx. Pt lives with daughter Yanique (primary caregiver), her son in law and 3 grandchildren. Pt is independent with all her ADL's and utilizes a walker to go around the home. Pt lives in a one margarita home with 2 steps to get to the front door. Pt denies any history of mental health or substance use. Unknown if there is any source of income, advanced directive, SNF preference and who the PCP is; DINNER COOK attempted to phone Yanique, no voicemail set-up. DINNER COOK provided pt with senior resources, SNF list, [employer] and advanced directive. DINNER COOK will try to follow up with reva Mcgowan again.
[2019-03-30 16:35] VITALS: BP_SYST 112
--- NOTE | 2019-03-30 17:30 | NUR ---
Physician Rounds Dr. Qureshi at bedside examining patient, informed Dr. Qureshi of bloody drainage seen at patients surgical site and that Dr. Loyd was informed, informed her of morning labs including hgb 8.9 and platelets 109 and that lovenox 40 was given, no change in medication orders at this time.
--- NOTE | 2019-03-30 19:09 | NUR ---
Closing Note SBAR report given Dipika RN, patient resting in bed, respirations even and unlabored on room air, no acute distress noted, patient reports pain is controlled, assessed surgical dressing to right hip, no new drainage noted since this AM, patients daughter at bedside, educated patient on use of call light and asked to call for assistance, patient verbalized understanding, call light in reach, bed in low and locked position, bed alarm on, care endorsed to receiving RN.
[2019-03-30 20:00] VITALS: BP_SYST 130
[2019-03-30] MEDS ORDERED: INSULIN GLARGINE 100 UNITS/ML 10 ML VIAL SUBCUT SCH (21:00)
[2019-03-30] MEDS ORDERED: MILK OF MAGNESIA 30 ML UDC PO SCH (21:30)
--- NOTE | 2019-03-30 21:51 | NUR ---
Patient in bed. No acute distress noted. Patient complained of constipation. Call placed to Dr. Qureshi, new order received.
[2019-03-31] MEDS: ACETAMINOPHEN 325 MG TABLET PO PRN (04:42)
--- NOTE | 2019-03-31 05:13 | NUR ---
PATIENT IN BED. KEARNEY REMOVED. PATIENT VOIDEDX1 AFTER KEARNEY WAS REMOVED. WILL CONTINUE TO MONITOR.
[2019-03-31 06:01] LABS: BASOPHILS # (AUTO) 0.1 K/uL (0.0-0.2); BASOPHILS % (AUTO) 0.9 % (0.0-2.0); EOSINOPHILS # (AUTO) 0.1 K/uL (0.0-0.4); EOSINOPHILS % (AUTO) 1.7 % (0.0-4.0); HEMATOCRIT 25.5 % (36-48); HEMOGLOBIN 8.6 g/dL (12.0-16.0); LYMPHOCYTES # (AUTO) 1.3 K/uL (1.0-5.5); LYMPHOCYTES % (AUTO) 16.8 % (20.5-51.5); MEAN CORPUSCULAR HEMOGLOBIN 30 pg (27-31); MEAN CORPUSCULAR HGB CONC 34 % (32-36); MEAN CORPUSCULAR VOLUME 88 fL (79.0-98.0); MONOCYTES # (AUTO) 1.2 K/uL (0.0-1.0); MONOCYTES % (AUTO) 14.8 % (1.7-9.3); NEUTROPHILS # (AUTO) 5.2 K/uL (1.8-7.7); NEUTROPHILS % (AUTO) 65.8 % (40.0-70.0); PLATELET COUNT (AUTO) 120 K/uL (130-430); RED BLOOD CELL COUNT(AUTO) 2.89 MIL/uL (4.2-6.2); RED CELL DISTRIBUTION WIDTH 13.4 % (9.0-15.0); WHITE BLOOD COUNT (AUTO) 7.8 K/uL (4.8-10.8)
--- NOTE | 2019-03-31 07:50 | NUR ---
Note Dr Harry on the floor doing assessment at this time.
[2019-03-31] MEDS: ENOXAPARIN SODIUM 40 MG/0.4 ML SYRINGE SUBCUT SCH (09:00)
[2019-03-31] MEDS: LOSARTAN POTASSIUM 50 MG TABLET (COZAAR) PO SCH (09:00)
[2019-03-31] MEDS: METOPROLOL SUCCINATE 25 MG TAB.SR.24H (TOPROL XL) PO SCH (09:00)
--- NOTE | 2019-03-31 10:45 | NUR ---
Note Pt resting in bed after eating her breakfast assisted by her daughter. Pt took one tablet [place] at 0835am for physical therapy. Pt encouraged to use IS q1' 10 while awake. Tele unit attached and intact. Right hip dressing dry and intact - has ice pack on side. Neuro checks on right leg WNL at this time. IV in left AC intact and patent at this time. Pt worked with Physical Therapy at this time. Tolerated well. Call light within reach.
[2019-03-31] MEDS: INSULIN LISPRO SLIDING SCALE 100 UNITS/ML VIAL (humaLOG) SUBCUT PRN ×3 (11:45→20:42)
[2019-03-31 12:13] VITALS: BP_SYST 114
--- NOTE | 2019-03-31 14:00 | NUR ---
Note Pt has family at bedside all shift assisting pt with care and needs. Pt denies any needs at this time. Call light within reach.
--- NOTE | 2019-03-31 16:05 | NUR ---
Note Pt resting in bed. Denies any needs at this time. Family at bedside at this time. Call light within reach.
[2019-03-31 16:27] VITALS: BP_SYST 122
--- NOTE | 2019-03-31 17:40 | NUR ---
Note Dr Qureshi on the floor at pt's bedside answering questions/concerns at this time. Pt has been using IS - (1500) at this time. Pt's family encouraging pt to move right leg/foot and ankle q1'. Pt denies any severe pain/discomfort at right hip. Call light within reach.
--- NOTE | 2019-03-31 18:10 | NUR ---
Note Pt sitting up in bed eating her dinner assisted by her family. No SOB/resp distress or severe right hip pain/discomfort noted at this time. Right hip dressing dry and intact at this time. Tele unit attached and intact all shift. Pt was checked on q1' and PRN all shift for needs and care. IV in left AC intact and patent. No needs noted at this time. Call light within reach.
--- NOTE | 2019-03-31 19:30 | NUR ---
initial notes received handoff report from offgoing nurse at the bedside. patient is awake and alert, resting comfortably in bed, family is at the bedside. no sob, no acute distress, no complaints of pain at this time. bed is locked, lowest position, 2x side rails up, bed alarm is on. plan of care explained to the patient and family, and they verbalized understanding. will continue with plan of care.
[2019-03-31 20:00] VITALS: BP_SYST 124
--- NOTE | 2019-03-31 20:30 | NUR ---
patient assisted onto a bed dial. had a bm, brown formed and soft. provided skin care as needed. encouraged patient to call for assistance.
[2019-03-31] MEDS ORDERED: INSULIN GLARGINE 100 UNITS/ML 10 ML VIAL SUBCUT SCH (21:00)
--- NOTE | 2019-03-31 22:04 | NUR ---
patient complaining of pain to her right hip. provided pain medication prn per md order, see emar for details.
--- NOTE | 2019-03-31 22:37 | NUR ---
daughter resting at the bedside, sleeping. patient aaox4, resting comfortably in bed. no complaints of pain at this time. bed is locked, lowest position, 2x side rails up, bed alarm is on. call light within reach. encouraged patient to call for assistance.
[2019-04-01 00:02] VITALS: BP_SYST 98
--- NOTE | 2019-04-01 00:45 | NUR ---
Resting comfortably in bed, eyes closed. Breathing even and unlabored with noted chest rise and fall. Call light is within reach. daughter at the bedside sleeping.
--- NOTE | 2019-04-01 02:58 | NUR ---
Patient resting comfortably in bed, eyes closed. Breathing even and unlabored with visible chest rise and fall noted. No SOB, no acute distress, no signs of pain or facial grimacing noted. Bed is locked, lowest position, 2x side rails up, bed alarm is on.
--- NOTE | 2019-04-01 05:00 | NUR ---
patient resting comfortably in bed, eyes closed, easily aroused to voice. daughter at the bedside, sleeping. no sob, no acute distress, no signs of pain or facial grimacing noted. bed is locked, lowest position, 2x side rails up, bed alarm is on. call light is within reach.
[2019-04-01] MEDS: INSULIN LISPRO SLIDING SCALE 100 UNITS/ML VIAL (humaLOG) SUBCUT PRN ×4 (06:24→20:23)
--- NOTE | 2019-04-01 06:37 | NUR ---
Patient assisted to use the fractured bed dial. Voided yellow clear urine. Provided pericare as needed. Patient is clean and dry, resting comfortably in bed. Call light within reach. Encouraged patient to call for assistance.
--- NOTE | 2019-04-01 07:17 | NUR ---
Closing Notes Handoff report given to oncoming dayshift nurse. Patient is AAOx4, resting comfortably in bed. No SOB, no acute distress, no complaints of pain. Bed is locked, lowest position, 2x side rails up, bed alarm is on. Call light is within reach. Fall and safety precautions maintained. All needs have been met during this shift.
--- NOTE | 2019-04-01 07:50 | NUR ---
Note Dr Harry at bedside doing assessment and answering questions/concerns at this time from pt and her daughter.
[2019-04-01 08:00] VITALS: BP_SYST 120
--- NOTE | 2019-04-01 08:00 | NUR ---
Note Pt assisted in sitting up in bed to eat her breakfast. No SOB/resp distress or severe right hip pain noted at this time. IV in left AC intact and patent at this time. Pt's daughter at bedside. Right hip dressing intact and dry at this time. No needs noted. Neuro checks on right leg WNL. Call light within reach.
[2019-04-01] MEDS: FERROUS SULFATE 142 MG TABLET.ER PO SCH (08:25)
[2019-04-01] MEDS: METOPROLOL SUCCINATE 25 MG TAB.SR.24H (TOPROL XL) PO SCH (08:26)
[2019-04-01] MEDS: LOSARTAN POTASSIUM 50 MG TABLET (COZAAR) PO SCH (08:26)
[2019-04-01] MEDS: HYDROcodone/ACETAMIN 5-325 MG TAB (NORCO/ VICODIN) PO PRN (08:28)
[2019-04-01] MEDS: ENOXAPARIN SODIUM 40 MG/0.4 ML SYRINGE SUBCUT SCH (08:32)
--- NOTE | 2019-04-01 10:50 | NUR ---
Note Pt took [place] one tablet at 0830am after breakfast for physical therapy. PT came to work with pt. Pt tolerated getting OOB well. Pt has 3 family members at bedside to assist pt with needs and care. Call light within reach. No needs noted at this time.
--- NOTE | 2019-04-01 11:23 | NUR ---
DC Planning: Met with dtrs/Monty and Pily and son in law/Boo at bedside , discussing snf of choice. They preferred #1 [facility], 2 [facility], 3 [place] [facility], 4 [facility], 5 [facility]. -- Deann shresthap is to process the referral. Addendum: 04/01/19 at 1622 by Matti Vilchis RN snf referral f/u: [facility]: per [place], no accepting [facility]: per Aracelis, not dio with CHANG araiza, needs [facility] [place] and [facility]:: not contracted per Lilliana/jonnie Leon cm sent out referrals to : other in net work snf per Lilliana : [facility] [place]. -- CM to f/u in am.
--- NOTE | 2019-04-01 11:47 | NUR ---
Discharge Planning: DCP faxed pt referral to [facility] (f [phone] p [phone]) DCP to follow up. Addendum: 04/01/19 at 1502 by Deann Lou DP [facility] (f [phone] p [phone]) Per Aracelis not contracted. DCP faxed patient referral to [facility] [place] (f [phone] ) DCP to follow up Addendum: 04/01/19 at 1507 by Deann Lou DP DCP faxed pt referral to [facility] ([phone] p [phone]) DCP to follow up
--- NOTE | 2019-04-01 12:05 | NUR ---
Note Pt has family at bedside assisting with needs and care. Pt's right hip dressing intact and dry. Call light within reach. Pt has been using IS q1' 10X while awake and moving right leg/ankle - with reminders from family members.
[2019-04-01 12:48] VITALS: BP_SYST 116
[2019-04-01] MEDS ORDERED: INSULIN GLARGINE 100 UNITS/ML 10 ML VIAL SUBCUT ONE (13:15)
--- NOTE | 2019-04-01 14:25 | NUR ---
NOTE Dr Cooper at bedside - assessing pt. Dressing on right hip removed. Incision open to air with consuelo intact. No bleeding/drainage/swelling noted. Incision left open to air. Pt's daughter and another family member at bedside at this time.
[2019-04-01 16:11] VITALS: BP_SYST 141
--- NOTE | 2019-04-01 17:00 | NUR ---
Note Pt resting in bed with daughter at bedside. Pt denies any needs at this time. Right hip incision intact with consuelo.
--- NOTE | 2019-04-01 18:05 | NUR ---
Note Pt sitting up in bed eating her dinner assisted by her daughter at bedside. Tele unit attached and intact at this time. IV in left AC intact and patent. Pt was checked on q1' and PRN all shift for needs and care. No needs noted at this time. No SOB/resp distress or severe right hip pain/discomfort noted at this time. Call light within reach. Right hip incision intact with consuelo. No active bleeding/drainage noted at this time.
--- NOTE | 2019-04-01 19:30 | NUR ---
INITIAL NOTES RECEIVED HANDOFF REPORT FROM OFFGOING NURSE AT THE BEDSIDE. PATIENT IS AAOX4, RESTING COMFORTABLY IN BED. GRANDSON IS AT THE BEDSIDE. NO SOB, NO ACUTE DISTRESS, NO SIGNS OF PAIN OR FACIAL GRIMACING NOTED. BED IS LOCKED, LOWEST POSITION, 2X SIDE RAILS UP, BED ALARM IS ON. CALL LIGHT IS WITHIN REACH. ENCOURAGED PATIENT TO CALL FOR ASSISTANCE. ICE PACKS APPLIED TO THE RIGHT HIP AND THIGH AREA NEEDED.
[2019-04-01 20:00] VITALS: BP_SYST 137
--- NOTE | 2019-04-01 20:00 | NUR ---
INCENTIVE SPIROMETER TEACHING DONE. PATIENT ABLE TO PROPERLY DEMONSTRATE 1000ML ON THE INCENTIVE SPIROMETER AT THIS TIME. Addendum: 04/01/19 at 2338 by Annmarie Clark RN CONTINUATION OF NOTES PATIENT EDUCATE TO USE THE INCENTIVE SPIROMETER FREQUENTLY WHEN AWAKE. PATIENT AND FAMILY MEMBERS VERBALIZED THAT THE PATIENT HAS BEEN USING IT THROUGHOUT THE DAY.
[2019-04-01] MEDS: ACETAMINOPHEN 325 MG TABLET PO PRN (20:24)
--- NOTE | 2019-04-01 20:24 | NUR ---
PATIENT COMPLAINING OF RIGHT HIP PAIN. STATES SHE IS UNABLE TO SLEEP WITH THE PAIN. PROVIDED TYLENOL PRN PER MD ORDER, SEE EMAR FOR DETAILS.
--- NOTE | 2019-04-01 20:30 | NUR ---
FAMILY HAD CONCERNS REGARDING THE IV SITE. IV SITE STILL PATENT AND INTACT, FLUSHES 5ML OF NORMAL SALINE, NO PAIN, NO TENDERNESS. EDUCATED FAMILY THAT THE IV SITE IS STILL PATENT; HOWEVER, OFFERED TO START A NEW IV SITE IF THE SITE BOTHERED THE PATIENT. FAMILY REFUSED, STATING THAT " LONG IT WORKS, WE WILL KEEP IT IN."
[2019-04-01] MEDS ORDERED: INSULIN GLARGINE 100 UNITS/ML 10 ML VIAL SUBCUT SCH (21:00)
--- NOTE | 2019-04-01 22:02 | NUR ---
PROVIDED MORE ICE PACKS NEEDED PER PATIENT REQUEST. CALL LIGHT WITHIN REACH. ENCOURAGED PATIENT AND GRANDSON TO CALL FOR ASSISTANCE.
--- NOTE | 2019-04-02 | NUR ---
RESTING COMFORTABLY IN BED, EYES CLOSED. BREATHING EVEN AND UNLABORED, VISIBLE CHEST RISE AND FALL NOTED. NO SOB, NO ACUTE DISTRESS, NO SIGNS OF PAIN OR FACIAL GRIMACING NOTED. CALL LIGHT WITHIN REACH.
[2019-04-02 01:53] VITALS: BP_SYST 135
--- NOTE | 2019-04-02 03:00 | NUR ---
PATIENT RESTING COMFORTABLY IN BED. VISIBLE CHEST RISE AND FALL NOTED. NO SIGNS OF DISTRESS OR PAIN NOTED AT THIS TIME. EYES ARE CLOSED. CALL LIGHT WITHIN REACH. GRANDSON AT THE BEDSIDE SLEEPING.
[2019-04-02] MEDS: ACETAMINOPHEN 325 MG TABLET PO PRN ×2 (05:55→18:23)
--- NOTE | 2019-04-02 05:55 | NUR ---
PATIENT COMPLAINING OF RIGHT HIP PAIN. PROVIDED TYLENOL PRN PER MD ORDER, SEE EMAR FOR DETAILS. ALSO APPLIED MORE ICE PACKS NEEDED. DANNY AT THE BEDSIDE.
[2019-04-02] MEDS: INSULIN LISPRO SLIDING SCALE 100 UNITS/ML VIAL (humaLOG) SUBCUT PRN ×3 (06:04→16:57)
--- NOTE | 2019-04-02 06:36 | NUR ---
CLOSING NOTES PATIENT IS RESTING COMFORTABLY IN BED, AAOX4. NO SOB, NO ACUTE DISTRESS. IV SITE INTACT, DRESSING CLEAN AND DRY, SALINE LOCKED. BED IS LOCKED, LOWEST POSITION, 2X SIDE RAILS UP, BED ALARM IS ON. CALL LIGHT IS WITHIN REACH. FALL AND SAFETY PRECAUTIONS MAINTAINED. ALL NEEDS HAVE BEEN MET AT THIS TIME. WILL ENDORSE CARE TO ONCOMING DAYSHIFT NURSE.
--- NOTE | 2019-04-02 07:25 | NUR ---
AM ROUNDS: RECEIVED REPORT FROM NIGHT NURSE CHLOE.PATIENT ON THE BED.AWAKE,ALERT AND ORIENTED X3-4. RIGHT HIP WITH ESA,OPEN TO AIR,INTACT. NO IV ACCESS,ACCIDENTAL PULLED OUT. CALL LIGHT WITH IN REACH. BED LOCKED AT LOWEST POSITION. PATIENT'S SISTER CARLOS AT THE BEDSIDE. NO ACUTE DISTRESS.
[2019-04-02 08:30] VITALS: BP_SYST 133
[2019-04-02] MEDS: LOSARTAN POTASSIUM 50 MG TABLET (COZAAR) PO SCH (08:43)
[2019-04-02] MEDS: HYDROcodone/ACETAMIN 5-325 MG TAB (NORCO/ VICODIN) PO PRN (08:44)
[2019-04-02] MEDS: METOPROLOL SUCCINATE 25 MG TAB.SR.24H (TOPROL XL) PO SCH (08:45)
[2019-04-02] MEDS: FERROUS SULFATE 142 MG TABLET.ER PO SCH (08:45)
[2019-04-02] MEDS: ENOXAPARIN SODIUM 40 MG/0.4 ML SYRINGE SUBCUT SCH (08:46)
--- NOTE | 2019-04-02 11:00 | NUR ---
NO IV ACCESS: DR GONZALES DID HER ROUNDS AND INFORMED HER, PT REFUSED IV ACCESS. OK NOT TO INSERT NEW IV PER MD.
--- NOTE | 2019-04-02 11:33 | NUR ---
Blood Sugar: Blood noiwn=592tr/dl,Humalog 4 units subq given per sliding scale.No problem.
[2019-04-02 11:56] VITALS: BP_SYST 108
--- NOTE | 2019-04-02 15:43 | NUR ---
DC PLANNING Order to dc to SNF. Discussed w pt & dtrs Pily & Sonalcelzac @ bedside. Informed only [facility] pt [facility], per dtr going to go look @ facility. Informed [facility] reviewing, states do not want [facility]. States pts dtr Yanique makes decision. Spoke w Reva Chanel in hallway & updated, states will go look @ [facility] also states does not want [facility]. Later in afternoon spoke w dtr's Jadiel & pt @ bedside, agreeable w [facility] would like to see if private room avail, will pay for it. Per fady Zacarias strategic planner no private rooms avail. Called & spoke w reva Chanel, ph [phone], states saw facility & agreeable, informed no private rooms. Informed pt & dtr's Pily & Sonalcelie @ bedside orange picking supervisor for 630pm, agreeable. Pt's nurse aware.
--- NOTE | 2019-04-02 15:54 | NUR ---
Discharge Planning: DCP spoke to Emelyn at [facility] (f [phone] ) pt accepted RM 14A, DCP arranged transportation with [facility] ([phone]) 6:30pm P/U. Nurse made aware and patient packet taken to nurse station.
[2019-04-02 16:40] VITALS: BP_SYST 115
[2019-04-02 17:41] VITALS: BP_SYST 115
--- NOTE | 2019-04-02 17:55 | NUR ---
REPORT: REPORT GIVEN TO GRACE VELAZQUEZ FROM [facility]. Addendum: 04/02/19 at 1807 by Natalie Kumar RN ADDED NOTES: ROOM WAS CHANGED TO 17-A PER REPORT GRACE.
--- NOTE | 2019-04-02 19:00 | NUR ---
DC TRANSFER NOTES TO SNF: TRANSFER PACKETS GIVEN TO [id number]. PERSONAL BELONGINGS SENT WITH THE PATIENT.FAMILY AT THE BEDSIDE DURING THE TRANSFER.[facility] TRANSPORTED PATIENT TO [facility] IN STABLE CONDITION.
[2019-04-02] MEDS ORDERED: INSULIN GLARGINE 100 UNITS/ML 10 ML VIAL SUBCUT SCH (21:00)
--- NOTE | 2019-04-08 11:07 | NUR ---
PHYSICAL THERAPY CO-SIGN The Physical Therapy Progress Notes documented by Optical Glass Etcher have been reviewed. Reviewed/Co-Signed by: Ti Alex PT Documentation Done by: LEIGHANN ALARCON PTA Addendum: 04/08/19 at 1110 by Ti Alex PT Amended: Links added.
--- NOTE | 2019-04-08 11:08 | NUR ---
PHYSICAL THERAPY CO-SIGN The Physical Therapy Progress Notes documented by Audiometric Technician have been reviewed. Reviewed/Co-Signed by: Ti Alex PT Documentation Done by: LEIGHANN ALARCON PTA Addendum: 04/08/19 at 1110 by Ti Alex PT Amended: Links added.
== END 2019-04-02 19:00 | DRG 308 ==
LOC: SED 16:38 → SMU 18:58 → STU 19:03
PROVIDERS: ADMIT Internal Medicine; ATTEND Internal Medicine
PROC: 0QS604Z Reposition Right Upper Femur with Internal Fixation Device, Open Approach (ICD-10-PCS; principal; 2019-03-29 10:00)
DX: S72.141A Displaced intertrochanteric fracture of right femur, initial encounter for closed fracture (principal); E44.0 Moderate protein-calorie malnutrition; D64.9 Anemia, unspecified; E11.9 Type 2 diabetes mellitus without complications; I44.7 Left bundle-branch block, unspecified; I10 Essential (primary) hypertension; M17.0 Bilateral primary osteoarthritis of knee; W10.9XXA Fall (on) (from) unspecified stairs and steps, initial encounter; Z85.828 Personal history of other malignant neoplasm of skin; Y93.89 Activity, other specified; Y92.89 Other specified places as the place of occurrence of the external cause; Y99.8 Other external cause status
CPT/HCPCS: 36415; 70450-TC; 71045; 72125-TC; 72192-TC; 76000; 80048; 80053; 81003; 82040-TC; 82962; 84443-TC; 85025; 85610-TC; 85730-TC; 86886; 86900; 86901; 87081; 93005; 93306; 97110-GP; 97112-GP; 97116-GP; 97530-GP; 99285; C1713; G0378; J0690; J1650; J1815; J2250; J2274; J2704; J3490; J7050; J7120

== ENCOUNTER 2022-09-28 05:39 | Inpatient (IN) | payer MEDICAID, MEDICARE ==
[~2022-09-28] VITALS: Ht 152.4 cm; Wt 63.0 kg
[~2022-09-28 05:39] MED LIST changes: -BUPIVACAINE /DEX PF 0.75% SPINAL 2 ML AMP INJ ONE; -CEFAZOLIN 2 GM IVPB PREMIX 50 ML IV ONE; +GLIM4TAB PO; +LIP40 PO; -LR 1,000 ML IV.SOLN IV ONE; -MIDAZOLAM HCL 5 MG/5 ML VIAL IVP ONE; -MORPHINE SULFATE 10MG/10ML PF AMP EP ONE; -PROPOFOL 200MG/ 20ML VIAL (DIPRIVAN) IV ONE; +VALS160T29 PO
[2022-09-28 05:42] VITALS: BP_SYST 177; PULSE 106; RESP 20; TEMP 97.5; O2SAT 97
[2022-09-28] MEDS ORDERED: MORPHINE 2 MG/ML INJ. SYRINGE IVP ONE (05:45)
[2022-09-28 06:41] LABS: BASOPHILS # (AUTO) 0.1 K/uL (0.0-0.2); BASOPHILS % (AUTO) 1.4 % (0.0-2.0); EOSINOPHILS # (AUTO) 0.2 K/uL (0.0-0.4); HEMATOCRIT 35.7 % (36-48); HEMOGLOBIN 11.8 g/dL (12.0-16.0); LYMPHOCYTES # (AUTO) 0.6 K/uL (1.0-5.5); LYMPHOCYTES % (AUTO) 7.2 % (20.5-51.5); MEAN CORPUSCULAR HEMOGLOBIN 28 pg (27-31); MEAN CORPUSCULAR HGB CONC 33 % (32-36); MEAN CORPUSCULAR VOLUME 86 fL (79.0-98.0); MONOCYTES # (AUTO) 0.8 K/uL (0.0-1.0); MONOCYTES % (AUTO) 9.4 % (1.7-9.3); NEUTROPHILS # (AUTO) 6.3 K/uL (1.8-7.7); PLATELET COUNT (AUTO) 190 K/uL (130-430); RED BLOOD CELL COUNT(AUTO) 4.16 MIL/uL (4.2-6.2); RED CELL DISTRIBUTION WIDTH 13.6 % (9.0-15.0)
[2022-09-28] MEDS ORDERED: D5LR 1,000 ML IV ONE (06:45)
[2022-09-28] MEDS ORDERED: LOSA100T4 PO (06:58)
[2022-09-28] MEDS ORDERED: METO25TA6 PO (06:58)
[2022-09-28] MEDS ORDERED: semaglutide (06:58)
[2022-09-28 07:08] LABS: ANION GAP 10 (5-15); CALCIUM 9.1 mg/dL (8.4-11.0); CARBON DIOXIDE 27 mmol/L (23-29); CHLORIDE 102 mmol/L (98-107); GLUCOSE 174 mg/dL (74-106); POTASSIUM 3.6 mmol/L (3.5-5.1); PROTHROMBIN TIME 10.8 SECS (9.5-12.5); SODIUM SERUM 139 mmol/L (136-145); UREA NITROGEN, BLOOD 14 mg/dL (8-21)
[2022-09-28 07:13] LABS: ALANINE AMINOTRANSFERASE 17 U/L (12-78); ALBUMIN 3.5 g/dL (3.4-4.8); ASPARTATE AMINOTRANSFERASE 24 U/L (10-37); CREATINE KINASE, TOTAL 127 U/L (26-192); TOTAL BILIRUBIN 1.2 mg/dL (0.0-1.0); TOTAL PROTEIN, SERUM 7.2 g/dL (6.4-8.3)
[2022-09-28] MEDS: MORPHINE 2 MG/ML INJ. SYRINGE IVP PRN ×4 (09:33→22:32)
[2022-09-28] MEDS ORDERED: cloNIDine HCL 0.1 MG TABLET ONE (09:52)
[2022-09-28] MEDS ORDERED: cloNIDine HCL 0.1 MG TABLET PO ONE (10:00)
[2022-09-28] MEDS ORDERED: ONDANSETRON HCL 4 MG/2 ML VIAL IVP PRN (10:15)
[2022-09-28] MEDS ORDERED: cloNIDine HCL 0.1 MG TABLET PO PRN (10:15)
[2022-09-28] MEDS: D5LR 1,000 ML IV SCH ×2 (10:15→22:32)
[2022-09-28 11:31] VITALS: BP_SYST 114; PULSE 98; RESP 16; TEMP 97.2
[2022-09-28 16:00] VITALS: BP_SYST 118; PULSE 72; RESP 16; TEMP 97.5; O2SAT 96
[2022-09-28 16:53] LABS: CLARITY/URINE CLEAR (CLEAR); COLOR,URINE YELLOW (YELLOW)
[2022-09-28 16:54] LABS: BILIRUBIN,URINE NEGATIVE (NEGATIVE); BLOOD, URINE NEGATIVE (NEGATIVE); GLUCOSE,URINE NEGATIVE (NEGATIVE); KETONES,URINE NEGATIVE (NEGATIVE); LEUKOCYTE ESTERASE ,URINE NEGATIVE (NEGATIVE); NITRITE, URINE NEGATIVE (NEGATIVE); PH,URINE 6.5 (5.0-8.0); PROTEIN URINE NEGATIVE (NEGATIVE); UROBILINOGEN,URINE 0.2 (0.2-1.0)
[2022-09-28 19:00] VITALS: BP_SYST 145; PULSE 91; RESP 16; TEMP 98.1; O2SAT 94
[2022-09-28 20:00] VITALS: BP_SYST 145; PULSE 91; RESP 16; TEMP 98.1; O2SAT 94
[2022-09-29] VITALS (7 sets, daily range): BP systolic 136–163; PULSE 91–104; RESP 16–20; TEMP 97.8–97.9; O2SAT 94–98
[2022-09-29 05:22] LABS: BASOPHILS % (AUTO) 0.5 % (0.0-2.0); EOSINOPHILS # (AUTO) 0.3 K/uL (0.0-0.4); EOSINOPHILS % (AUTO) 4.3 % (0.0-4.0); HEMATOCRIT 28.1 % (36-48); HEMOGLOBIN 9.5 g/dL (12.0-16.0); LYMPHOCYTES # (AUTO) 0.9 K/uL (1.0-5.5); LYMPHOCYTES % (AUTO) 13.8 % (20.5-51.5); MEAN CORPUSCULAR HEMOGLOBIN 29 pg (27-31); MEAN CORPUSCULAR HGB CONC 34 % (32-36); MEAN CORPUSCULAR VOLUME 86 fL (79.0-98.0); MONOCYTES # (AUTO) 0.8 K/uL (0.0-1.0); MONOCYTES % (AUTO) 12.9 % (1.7-9.3); NEUTROPHILS # (AUTO) 4.3 K/uL (1.8-7.7); NEUTROPHILS % (AUTO) 68.5 % (40.0-70.0); PLATELET COUNT (AUTO) 161 K/uL (130-430); RED BLOOD CELL COUNT(AUTO) 3.26 MIL/uL (4.2-6.2); RED CELL DISTRIBUTION WIDTH 13.3 % (9.0-15.0); WHITE BLOOD COUNT (AUTO) 6.3 K/uL (4.8-10.8)
[2022-09-29 06:00] LABS: ALANINE AMINOTRANSFERASE 9 U/L (12-78); ALBUMIN 2.7 g/dL (3.4-4.8); ANION GAP 5 (5-15); ASPARTATE AMINOTRANSFERASE 19 U/L (10-37); CARBON DIOXIDE 28 mmol/L (23-29); CHLORIDE 104 mmol/L (98-107); CREATININE 0.68 mg/dL (0.55-1.30); GLUCOSE 162 mg/dL (74-106); POTASSIUM 4.1 mmol/L (3.5-5.1); SODIUM SERUM 137 mmol/L (136-145); TOTAL PROTEIN, SERUM 5.9 g/dL (6.4-8.3); UREA NITROGEN, BLOOD 12 mg/dL (8-21)
[2022-09-29] MEDS: MORPHINE 2 MG/ML INJ. SYRINGE IVP PRN (07:57)
[2022-09-29] MEDS: D5LR 1,000 ML IV SCH ×2 (11:15→23:35)
[2022-09-29] MEDS ORDERED: traMADol HCL HCL 50 MG TABLET (ULTRAM) PO ONE (13:00)
[2022-09-29] MEDS ORDERED: METOPROLOL TARTRATE 25 MG TABLET PO ONE (13:00)
[2022-09-29] MEDS ORDERED: ATORVASTATIN 20 MG TABLET PO ONE (13:00)
[2022-09-29] MEDS ORDERED: DOCUSATE SODIUM 250 MG CAPSULE PO ONE (13:00)
[2022-09-29] MEDS ORDERED: LOSARTAN POTASSIUM 50 MG TABLET (COZAAR) PO ONE (13:00)
[2022-09-29] MEDS ORDERED: CHOLECALCIFEROL (VITAMIN D3) 2,000 UNIT TABLET PO ONE (13:15)
[2022-09-29] MEDS ORDERED: CALCIUM 500 MG/TAB PO ONE (13:15)
[2022-09-29] MEDS ORDERED: MAGNESIUM OXIDE 400 MG TABLET PO ONE (13:15)
[2022-09-29] MEDS: traMADol HCL HCL 50 MG TABLET (ULTRAM) PO SCH ×2 (17:40→23:34)
[2022-09-29] MEDS: DOCUSATE SODIUM 250 MG CAPSULE PO SCH (21:27)
[2022-09-29] MEDS: METOPROLOL TARTRATE 25 MG TABLET PO SCH (21:28)
[2022-09-29] MEDS: LOSARTAN POTASSIUM 50 MG TABLET (COZAAR) PO SCH (21:29)
[2022-09-30 00:38] VITALS: BP_SYST 167; PULSE 96; RESP 16; TEMP 96.3; O2SAT 95
[2022-09-30] MEDS: traMADol HCL HCL 50 MG TABLET (ULTRAM) PO SCH ×4 (06:17→23:15)
[2022-09-30 07:45] VITALS: O2SAT 97
[2022-09-30 08:00] VITALS: BP_SYST 156; PULSE 87; RESP 18; TEMP 98.1; O2SAT 97
[2022-09-30] MEDS ORDERED: NS 1000 ML IV.SOLN IV ONE (08:10)
[2022-09-30] MEDS ORDERED: NS IRRIG SOLN 1000 ML IR ONE (08:10)
[2022-09-30] MEDS ORDERED: LR 1,000 ML IV.SOLN IV ONE (08:10)
[2022-09-30] MEDS ORDERED: SEVOFLURANE 15 MIN GAS INH ONE (08:10)
[2022-09-30] MEDS ORDERED: fentaNYL CITRATE/PF 100 MCG/2 ML AMP ONE (08:10)
[2022-09-30] MEDS ORDERED: PHENYLEPHRINE HCL 10 MG/ML VIAL (NEOSYNEPHRINE) ONE (08:10)
[2022-09-30] MEDS ORDERED: VANCOMYCIN HCL 1000 MG/VIAL IV ONE (08:10)
[2022-09-30] MEDS ORDERED: ONDANSETRON HCL 4 MG/2 ML VIAL ONE ×2 (08:10→12:51)
[2022-09-30] MEDS ORDERED: BUPIVACAINE /PF 0.25% 30 ML VIAL INJ ONE (08:10)
[2022-09-30] MEDS ORDERED: ePHEDrine sulfate 50 MG/ML VIAL ONE (08:10)
[2022-09-30] MEDS ORDERED: TRANEXAMIC ACID 1,000 MG/10 ML VIAL ONE (08:10)
[2022-09-30] MEDS ORDERED: MORPHINE SULFATE 10MG/10ML PF AMP ONE (08:18)
[2022-09-30] MEDS: CALCIUM 500 MG/TAB PO SCH (09:00)
[2022-09-30] MEDS: LOSARTAN POTASSIUM 50 MG TABLET (COZAAR) PO SCH ×2 (09:00→20:37)
[2022-09-30] MEDS: MAGNESIUM OXIDE 400 MG TABLET PO SCH (09:00)
[2022-09-30] MEDS: METOPROLOL TARTRATE 25 MG TABLET PO SCH ×2 (09:00→20:37)
[2022-09-30] MEDS: DOCUSATE SODIUM 250 MG CAPSULE PO SCH ×2 (09:00→20:37)
[2022-09-30] MEDS: ATORVASTATIN 20 MG TABLET PO SCH (09:00)
[2022-09-30] MEDS ORDERED: CHOLECALCIFEROL (VITAMIN D3) 2,000 UNIT TABLET PO SCH (09:00)
[2022-09-30] MEDS ORDERED: ACETAMINOPHEN I.V. 1000 MG 100 ML IV ONE (11:24)
[2022-09-30] MEDS ORDERED: NALOXONE HCL 0.4 MG/ML AMP (NARCAN) IVP PRN (12:15)
[2022-09-30] MEDS ORDERED: LR 1,000 ML IV SCH (12:15)
[2022-09-30] MEDS ORDERED: ONDANSETRON HCL 4 MG/2 ML VIAL IVP PRN (12:15)
[2022-09-30] MEDS: D5LR 1,000 ML IV SCH (12:15)
[2022-09-30] MEDS ORDERED: HYDROmorphone 1 MG/ML INJ. CARTRIDGE IVP PRN (12:15)
[2022-09-30] MEDS ORDERED: HYDROmorphone 2 MG/ML VIAL IVP PRN (12:15)
[2022-09-30] MEDS ORDERED: LABETALOL HCL 20 MG/4 ML CARTRIDGE IVP ONE (12:30)
[2022-09-30 13:09] VITALS: BP_SYST 156; PULSE 87; O2SAT 97
[2022-09-30] MEDS ORDERED: CHOLECALCIFEROL (VITAMIN D3) 5,000 UNIT TABLET PO ONE (13:30)
[2022-09-30 16:05] VITALS: BP_SYST 122; PULSE 86; RESP 20; TEMP 97; O2SAT 98
[2022-09-30 20:00] VITALS: BP_SYST 118; PULSE 80; RESP 16; TEMP 97.7; O2SAT 99
[2022-09-30] MEDS: ceFAZolin SODIUM 2 GM in D5W 100 ML IV SCH (20:36)
[2022-10-01] VITALS (8 sets, daily range): BP systolic 116–145; PULSE 109–119; RESP 16–20; TEMP 98.5–99.6; O2SAT 95–100
[2022-10-01] MEDS: D5LR 1,000 ML IV SCH (02:16)
[2022-10-01] MEDS: ceFAZolin SODIUM 2 GM in D5W 100 ML IV SCH (04:38)
[2022-10-01 05:16] LABS: BASOPHILS % (AUTO) 0.4 % (0.0-2.0); EOSINOPHILS # (AUTO) 0.1 K/uL (0.0-0.4); EOSINOPHILS % (AUTO) 0.8 % (0.0-4.0); HEMATOCRIT 25.8 % (36-48); HEMOGLOBIN 8.7 g/dL (12.0-16.0); LYMPHOCYTES # (AUTO) 0.6 K/uL (1.0-5.5); LYMPHOCYTES % (AUTO) 6.6 % (20.5-51.5); MEAN CORPUSCULAR HEMOGLOBIN 29 pg (27-31); MEAN CORPUSCULAR HGB CONC 34 % (32-36); MEAN CORPUSCULAR VOLUME 85 fL (79.0-98.0); MONOCYTES # (AUTO) 0.8 K/uL (0.0-1.0); MONOCYTES % (AUTO) 9.5 % (1.7-9.3); NEUTROPHILS % (AUTO) 82.7 % (40.0-70.0); PLATELET COUNT (AUTO) 125 K/uL (130-430); RED BLOOD CELL COUNT(AUTO) 3.03 MIL/uL (4.2-6.2); RED CELL DISTRIBUTION WIDTH 13.4 % (9.0-15.0); WHITE BLOOD COUNT (AUTO) 8.5 K/uL (4.8-10.8)
[2022-10-01 06:07] LABS: ANION GAP 7 (5-15); CALCIUM 7.7 mg/dL (8.4-11.0); CARBON DIOXIDE 28 mmol/L (23-29); CHLORIDE 101 mmol/L (98-107); CREATININE 0.73 mg/dL (0.55-1.30); GLUCOSE 245 mg/dL (74-106); POTASSIUM 3.6 mmol/L (3.5-5.1); SODIUM SERUM 136 mmol/L (136-145); UREA NITROGEN, BLOOD 11 mg/dL (8-21)
[2022-10-01] MEDS: traMADol HCL HCL 50 MG TABLET (ULTRAM) PO SCH ×3 (06:14→17:57)
[2022-10-01] MEDS: DOCUSATE SODIUM 250 MG CAPSULE PO SCH ×2 (08:38→21:00)
[2022-10-01] MEDS: CHOLECALCIFEROL (VITAMIN D3) 5,000 UNIT TABLET PO SCH (08:38)
[2022-10-01] MEDS: METOPROLOL TARTRATE 25 MG TABLET PO SCH ×2 (08:39→21:00)
[2022-10-01] MEDS: MAGNESIUM OXIDE 400 MG TABLET PO SCH (08:40)
[2022-10-01] MEDS: LOSARTAN POTASSIUM 50 MG TABLET (COZAAR) PO SCH ×2 (08:40→21:01)
[2022-10-01] MEDS: ATORVASTATIN 20 MG TABLET PO SCH (08:41)
[2022-10-01] MEDS: CALCIUM 500 MG/TAB PO SCH (08:41)
[2022-10-01] MEDS ORDERED: MULTIVITS,CA,MINERALS/IRON/FA 1 TABLET PO ONE (12:30)
[2022-10-01] MEDS: NACL 0.9% 1,000 ML IV SCH (12:46)
[2022-10-01] MEDS: SOD FERRIC GLUC COMPLEX/SUC 125 MG in NS 100 ML IV SCH (15:05)
[2022-10-01] MEDS: ENOXAPARIN SODIUM 40 MG/0.4 ML SYRINGE SUBCUT SCH (21:01)
[2022-10-02] VITALS: BP_SYST 114; PULSE 108; RESP 18; TEMP 99.1; O2SAT 94
[2022-10-02] MEDS: traMADol HCL HCL 50 MG TABLET (ULTRAM) PO SCH ×4 (06:29→19:02)
[2022-10-02] MEDS: NACL 0.9% 1,000 ML IV SCH (06:29)
[2022-10-02 08:10] VITALS: BP_SYST 134; PULSE 96; RESP 16; TEMP 97.6; O2SAT 96
[2022-10-02 08:57] VITALS: O2SAT 96
[2022-10-02] MEDS ORDERED: MULTIVITS,CA,MINERALS/IRON/FA 1 TABLET PO SCH (09:00)
[2022-10-02] MEDS: DOCUSATE SODIUM 250 MG CAPSULE PO SCH (09:30)
[2022-10-02] MEDS: LOSARTAN POTASSIUM 50 MG TABLET (COZAAR) PO SCH (09:31)
[2022-10-02] MEDS: ATORVASTATIN 20 MG TABLET PO SCH (09:32)
[2022-10-02] MEDS: METOPROLOL TARTRATE 25 MG TABLET PO SCH (09:33)
[2022-10-02] MEDS: MAGNESIUM OXIDE 400 MG TABLET PO SCH (09:34)
[2022-10-02] MEDS: CALCIUM 500 MG/TAB PO SCH (09:35)
[2022-10-02] MEDS: CHOLECALCIFEROL (VITAMIN D3) 5,000 UNIT TABLET PO SCH (09:35)
[2022-10-02 11:36] VITALS: BP_SYST 121; PULSE 103; RESP 18; TEMP 98.1; O2SAT 98
[2022-10-02] MEDS ORDERED: GLUCOSE (DEXTROSE) ORAL GEL -Adults PO PRN (14:15)
[2022-10-02] MEDS ORDERED: DEXTROSE 50% JECT 50 ML DISP.SYRIN IVP PRN ×2 (14:15)
[2022-10-02] MEDS ORDERED: D5W 1,000 ML IV PRN (14:15)
[2022-10-02] MEDS ORDERED: MAGN400T10 PO (14:29)
[2022-10-02] MEDS ORDERED: LINA5TAB2 PO (14:29)
[2022-10-02] MEDS ORDERED: CHOL500013 PO (14:29)
[2022-10-02] MEDS ORDERED: DOCU250C71 PO (14:29)
[2022-10-02] MEDS ORDERED: MULT-1145 PO (14:37)
[2022-10-02] MEDS: SOD FERRIC GLUC COMPLEX/SUC 125 MG in NS 100 ML IV SCH (14:37)
[2022-10-02] MEDS ORDERED: LOVI40 SUBCUT (14:40)
[2022-10-02 15:22] LABS: BASOPHILS # (AUTO) 0.1 K/uL (0.0-0.2); BASOPHILS % (AUTO) 0.9 % (0.0-2.0); EOSINOPHILS # (AUTO) 0.3 K/uL (0.0-0.4); HEMATOCRIT 25.2 % (36-48); HEMOGLOBIN 8.2 g/dL (12.0-16.0); LYMPHOCYTES # (AUTO) 0.9 K/uL (1.0-5.5); LYMPHOCYTES % (AUTO) 7.9 % (20.5-51.5); MEAN CORPUSCULAR HEMOGLOBIN 28 pg (27-31); MEAN CORPUSCULAR HGB CONC 33 % (32-36); MEAN CORPUSCULAR VOLUME 87 fL (79.0-98.0); MONOCYTES # (AUTO) 1.1 K/uL (0.0-1.0); MONOCYTES % (AUTO) 9.9 % (1.7-9.3); NEUTROPHILS # (AUTO) 8.7 K/uL (1.8-7.7); NEUTROPHILS % (AUTO) 78.3 % (40.0-70.0); PLATELET COUNT (AUTO) 145 K/uL (130-430); RED BLOOD CELL COUNT(AUTO) 2.91 MIL/uL (4.2-6.2); RED CELL DISTRIBUTION WIDTH 13.6 % (9.0-15.0); WHITE BLOOD COUNT (AUTO) 11.1 K/uL (4.8-10.8)
[2022-10-02 15:35] LABS: ANION GAP 5 (5-15); CALCIUM 7.8 mg/dL (8.4-11.0); CARBON DIOXIDE 27 mmol/L (23-29); CHLORIDE 99 mmol/L (98-107); CREATININE 0.86 mg/dL (0.55-1.30); GLUCOSE 211 mg/dL (74-106); POTASSIUM 4.3 mmol/L (3.5-5.1); SODIUM SERUM 131 mmol/L (136-145); UREA NITROGEN, BLOOD 21 mg/dL (8-21)
[2022-10-02 16:20] VITALS: BP_SYST 143; PULSE 110; RESP 18; TEMP 99; O2SAT 94
[2022-10-02 17:12] VITALS: BP_SYST 143; PULSE 110; RESP 18; TEMP 99; O2SAT 94
[2022-10-02] MEDS: ENOXAPARIN SODIUM 40 MG/0.4 ML SYRINGE SUBCUT SCH (18:59)
== END 2022-10-02 19:30 | disposition home health service (06) | DRG 308 ==
LOC: SED 05:39 → STU 06:44 → SMU 10-02 13:41
PROVIDERS: ADMIT Internal Medicine; ATTEND Internal Medicine
PROC: 2W3LX1Z Immobilization of Right Lower Extremity using Splint (ICD-10-PCS; 2022-09-28)
PROC: 0QS604Z Reposition Right Upper Femur with Internal Fixation Device, Open Approach (ICD-10-PCS; principal; 2022-09-30 08:00)
DX: M80.051A Age-related osteoporosis with current pathological fracture, right femur, initial encounter for fracture (principal); E44.0 Moderate protein-calorie malnutrition; M97.01XA Periprosthetic fracture around internal prosthetic right hip joint, initial encounter; D62 Acute posthemorrhagic anemia; I10 Essential (primary) hypertension; E78.5 Hyperlipidemia, unspecified; E11.9 Type 2 diabetes mellitus without complications; I44.7 Left bundle-branch block, unspecified; W18.39XA Other fall on same level, initial encounter; Y93.89 Activity, other specified; Y92.89 Other specified places as the place of occurrence of the external cause; Y99.8 Other external cause status; Z85.828 Personal history of other malignant neoplasm of skin; Z79.899 Other long term (current) drug therapy; Z68.27 Body mass index [BMI] 27.0-27.9, adult
CPT/HCPCS: 36415; 71045; 73552; 73560-TC; 73700-TC; 76000; 76376; 80048; 80053; 81003; 82550; 82962; 84484; 85025; 85610-TC; 85730-TC; 86886; 86900; 86901; 86920; 87081; 93005; 93306; 96374; 97110-GP; 97163-GP; 97530-GP; 99285; G0378; J0131; J1650; J2270; J2274; J2370; J2405; J2916; J3010; J3370; J3490; J7030; J7060; J7120

== ENCOUNTER 2023-01-22 10:25 | Outpatient (CLI) | payer MEDICAID, MEDICARE ==
[~2023-01-22 10:25] MED LIST changes: +CHOL500013 PO; +DOCU250C71 PO; -GLIM4TAB PO; +LINA5TAB2 PO; +LOSA-415 PO; +LOVI40 SUBCUT; +MAGN400T10 PO; +METO25TA6 PO; +MULT-1145 PO; -VALS160T29 PO; +semaglutide
== END 2023-01-22 18:51 | disposition home or self-care (01) ==
LOC: SRD 10:25
PROVIDERS: ATTEND Orthopaedic Surgery
DX: S72.8X1D Other fracture of right femur, subsequent encounter for closed fracture with routine healing (principal); M96.671 Fracture of tibia or fibula following insertion of orthopedic implant, joint prosthesis, or bone plate, right leg; X58.XXXD Exposure to other specified factors, subsequent encounter
CPT/HCPCS: 73552